=== PATIENT | female | born 1965 | race Caucasian/White ===

== ENCOUNTER 2019-09-18 12:50 | Emergency (ER) | payer OTHER ==
[2019-09-18 13:15] VITALS: BP 157/105; PULSE 98; TEMP 97.8; BMI 42.7
--- NOTE | 2019-09-18 13:34 | PDOC ---
History of Present Illness - General Chief Complaint: Pain Stated Complaint: NUMBNESS Time Seen by Provider: 09/18/19 13:16 History Source: Patient - History of Present Illness Timing/Duration: other Associated Symptoms: denies: weakness Past History - Past Medical History Allergies/Adverse Reactions: Allergies Allergy/AdvReac Type Severity Reaction Status Date / Time No Known Allergies Allergy Verified 09/18/19 13:09 COPD: Yes CHF: Yes HTN: Yes - Psycho Social/Smoking Cessation Hx Smoking History: Never smoked Hx Alcohol Use: No Drug/Substance Use Hx: No Review of Systems - Review of Systems Musculoskeletal: Yes: Back Pain. No: Neck Pain Neurological: Yes: Numbness. No: Headache, Tingling, Weakness *Physical Exam - Vital Signs Last Vital Signs Temp Pulse Resp BP Pulse Ox 97.8 F 98 H 20 157/105 H 97 09/18/19 13:09 09/18/19 13:09 09/18/19 13:09 09/18/19 13:09 09/18/19 13:09 - Physical Exam General Appearance: Yes: Appropriately Dressed. No: Apparent Distress HEENT: positive: Normal Voice Neck: positive: Supple Integumentary: positive: Dry, Warm Neurologic: positive: Fully Oriented, Alert, Normal Mood/Affect, Motor Strength 5/5. negative: Sensory Deficit Medical Decision Making - Medical Decision Making 09/18/19 13:28 53-year-old morbidly obesed female with history of hypertension here with continued numbness to bilateral hands, mid back and right lower leg x3 weeks. States she saw her primary doctor and had negative blood work 2 weeks ago. States she was prescribed gabapentin which is not relieving sxs. Also complaining of a burning sensation to her mid back but does not describe it as painful. Patient denies any neck or back injuries and no history of diabetes. see exam Neuropathy Neg w/u in pmd's office 2 weeks ago On gabapentin w/ no relief Exam unremarkable here FS 121 -Dc w/ neuro referral for further eval Elevated BP Took meds today Asx from BP standpoint -Dc to f/u with PMD Discharge - Discharge Information Problems reviewed: Yes Clinical Impression/Diagnosis: Numbness, Elevated blood pressure reading Condition: Good Disposition: HOME - Follow up/Referral Referrals: Antelmo Enriquez MD [Staff Physician] - - Patient Discharge Instructions Patient Printed Discharge Instructions: DI for Numbness/tingling Additional Instructions: The cause of your symptoms is unclear at this time You will need to be further evaluated by a neurologist - Post Discharge Activity
== END 2019-09-18 13:59 | disposition home or self-care (01) ==
LOC: JERFT 12:50
DX: R20.0 Anesthesia of skin (principal); I11.0 Hypertensive heart disease with heart failure; I50.9 Heart failure, unspecified; J44.9 Chronic obstructive pulmonary disease, unspecified; E66.01 Morbid (severe) obesity due to excess calories; Z68.41 Body mass index [BMI] 40.0-44.9, adult
CPT/HCPCS: 82962; 99281-25

== ENCOUNTER 2019-10-01 15:22 | Emergency (ER) | payer OTHER ==
[2019-10-01 15:33] VITALS: TEMP 99.2; BMI 42.2
--- NOTE | 2019-10-01 16:23 | PDOC ---
History of Present Illness - General Chief Complaint: Head/Neck problem Stated Complaint: NUMBNESS IN HANDS/LEGS Time Seen by Provider: 10/01/19 16:14 History Source: Patient Exam Limitations: No Limitations - History of Present Illness Initial Comments: 10/01/19 16:32 HISTORY OF PRESENT ILLNESS: 54-year-old woman with past medical history of hypertension, asthma, COPD, restless leg syndrome, lower back tumor removal at age 17-18 who was sent to the emergency department by her neurologist today to rule out a cord compression. Patient reports she has been having increased numbness and tingling with pain in both hands, cervical and lumbar spine, bilateral lower extremities. Patient reports an additional burning sensation in her lower back and lower extremities. Patient endorses saddle anesthesia but denies loss of continence of bladder or bowel. Patient apparently had a negative work-up as an outpatient with her primary doctor and then followed up with neurology. No recent travel or sick contacts. PAST MEDICAL HISTORY: See HPI SURGICAL HISTORY: See HPI ALLERGIES: No known drug allergies REVIEW OF SYSTEMS General/Constitutional: Denies fever or chills. Denies weakness, weight change. HEENT: Denies change in vision. Denies ear pain or discharge. Denies sore throat. Cardiovascular: Denies chest pain or shortness of breath. Respiratory: Denies cough, wheezing, or hemoptysis. Gastrointestinal: Denies nausea, vomiting, diarrhea or constipation. Denies rectal bleeding. Genitourinary: Denies dysuria, frequency, or change in urination. Musculoskeletal: Denies joint or muscle swelling or pain. Denies neck or back pain. Skin and breasts: Denies rash or easy bruising. Neurologic: See HPI Psychiatric: Denies depression or anxiety. Endocrine: Denies increased thirst. Denies abnormal weight change. Hematologic/Lymphatic: Denies anemia, easy bleeding, or history of blood clots. Allergic/Immunologic: Denies hives or skin allergy. Denies latex allergy. PHYSICAL EXAM General Appearance: Well-appearing, appropriately dressed. No apparent distress , no intoxication. HEENT: EOMI, PERRLA, normal ENT inspection, normal voice, TMs normal, pharynx normal. No conjunctival pallor. No photophobia, scleral icterus. Neck: Supple. Trachea midline. No tenderness, rigidity, carotid bruit, stridor , lymphadenopathy, or thyromegaly. Respiratory/Chest: Lungs CTAB. No shortness of breath, chest tenderness, respiratory distress, accessory muscle use. No crackles, rales, rhonchi, stridor , wheezing, dullness Cardiovascular: RRR. S1, S2. No JVD, murmur, bradycardia, tachycardia. Vascular Pulses: Dorsalis-Pedis (R): 2+, Dorsalis-Pedis (L): 2+ Gastrointestinal/Abdominal: Normal bowel sounds. Obese abdomen soft, non- distended. No tenderness or rebound tenderness. No organomegaly, pulsatile mass , guarding, hernia, hepatomegaly, splenomegaly. Lymphatic: No adenopathy, tenderness. Musculoskeletal/Extremities: Normal inspection. FROM of all extremities, normal capillary refill. Pelvis Stable. No CVA tenderness. No tenderness to extremities, pedal edema, swelling, erythema or deformity. Integumentary: Appropriate color, dry, warm. No cyanosis, erythema, jaundice or rash Neurologic: community recreation coordinator II-XII intact. Fully oriented, alert. Appropriate mood/affect. 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 No appreciable EOM palsy, facial asymmetry or sensory deficit. Bilateral knee hyperreflexia noted. Rectal exam is within normal limits. Tone is normal. Stool present in the vault. 10/01/19 17:01 Past History - Past Medical History Allergies/Adverse Reactions: Allergies Allergy/AdvReac Type Severity Reaction Status Date / Time No Known Allergies Allergy Verified 10/01/19 15:33 COPD: Yes CHF: Yes HTN: Yes - Psycho Social/Smoking Cessation Hx Smoking History: Never smoked Have you smoked in the past 12 months: No Information on smoking cessation initiated: No Hx Alcohol Use: No Drug/Substance Use Hx: No *Physical Exam - Vital Signs Last Vital Signs Temp Pulse Resp BP Pulse Ox 99.2 F 81 16 158/85 100 10/01/19 15:22 10/01/19 15:22 10/01/19 15:22 10/01/19 15:22 10/01/19 15:22 ED Treatment Course - LABORATORY CBC & Chemistry Diagram: 10/01/19 17:25 10/01/19 17:25 Medical Decision Making - Medical Decision Making 10/01/19 16:37 A/P: 54-year-old woman with 3 weeks of cervical lumbar spine pain with numbness and tingling to bilateral upper extremities, lower extremity since 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 Hyperreflexia present in bilateral knees. Differential diagnosis includes but is not limited to cord compression, disc disease, spinal epidural abscess, metastatic disease Laboratory testing Urinalysis, urine culture Morphine 4 mg IV MRI of the cervical, thoracic and lumbar spine with contrast Dispo pending MRI and discussion with Dr. La the patient's neurologist 10/01/19 16:44 Case has been discussed with neurology who states if there are any findings on the MRI patient to be evaluated by neurosurgery and patient can be given steroids. MRI is negative patient can be discharged home and follow-up with him in his office as an outpatient. 10/01/19 23:05 MRI as read by imaging on-call: There is a suggestion of thickening and possible calcification of the posterior longitudinal ligament. There is an anterior epidural process at C4/C5. This effaces the subarachnoid space and produces severe central canal stenosis and mild cord compression. There is questionable very faint T2 weighted hyperintense intramedullary signal at this level possibly evidence of myelomalacia. On postcontrast images there is mild abnormal enhancement in the anterior epidural space at C4/C5. This raises the possibility of acute infectious process such as small collection in this region. Tiny hematoma in this region is also possible but would not be consistent with abnormal enhancement. 2. There is no evidence of compression fracture or subluxation appreciated. Neurosurgery has been paged Solu-Medrol 125 mg IV 10/02/19 00:11 Multiple attempt to contact neurosurgery if been unsuccessful. I will contact [facility] for transfer for neurosurgical evaluation. 10/02/19 00:17 Case has been discussed with Dr. Oh of neurosurgery at [facility] who accepts patient for ED to ED transfer. Will obtain a CD with the patient's images and ALS transportation has been requested will be provided by [facility]. Discharge - Discharge Information Problems reviewed: Yes Clinical Impression/Diagnosis: Cord compression Condition: Fair Disposition: TRANSFER ACUTE CARE/OTHER HOSP - Follow up/Referral - Patient Discharge Instructions - Post Discharge Activity - Transfer to Acute Care Facility Receiving Facility Name: [facility] Transfer Comment: 10/02/19 00:[address] Oh at 12:15 AM on 10/02/2019.
[2019-10-01] MEDS ORDERED: morphine CARPU-JECT 4 MG/1 ML DISP.SYRIN IVPUSH ONE (16:31)
[2019-10-01 18:05] LABS: BASO % 1.5 % (0-2.0); EOS % 3.8 % (0-4.5); HEMATOCRIT 39.5 % (32.4-45.2); HEMOGLOBIN 13.3 GM/dL (10.7-15.3); MCH 28.6 pg (25.7-33.7); MCHC 33.7 g/dl (32.0-36.0); MEAN CELL VOLUME 84.9 fl (80-96); MEAN PLT VOLUME 9.9 fl (7.5-11.1); MONO % 4.4 % (3.8-10.2); NEUT % 72.3 % (42.8-82.8); PLATELET COUNT 239 K/MM3 (134-434); RBC 4.66 M/mm3 (3.60-5.2); RDW 13.5 % (11.6-15.6); WHITE BLOOD COUNT 9.1 K/mm3 (4.0-10.0)
[2019-10-01 18:35] LABS: ALBUMIN 3.7 g/dl (3.4-5.0); BILIRUBIN,TOTAL 0.3 mg/dL (0.2-1); BLOOD UREA NITROGEN 9.9 mg/dL (7-18); CALCIUM 9.4 mg/dL (8.5-10.1); CREATININE 0.8 mg/dL (0.55-1.3); MAGNESIUM 2.3 mg/dL (1.8-2.4); POTASSIUM 4.1 mmol/L (3.5-5.1); TOT PROT 7.5 g/dl (6.4-8.2)
[2019-10-01] MEDS ORDERED: methylPREDNISolone NA SUCC 125 MG/2 ML VIAL IVPB ONE (23:05)
[2019-10-01] MEDS ORDERED: methylPREDNISolone NA SUCC 125 MG/2 ML VIAL ONE (23:47)
[2019-10-02 02:15] VITALS: BP 160/94; PULSE 81
== END 2019-10-02 02:16 | disposition short-term general hospital (02) ==
LOC: JER 15:22
PROC: 3E0333Z Introduction of Anti-inflammatory into Peripheral Vein, Percutaneous Approach (ICD-10-PCS; principal; 2019-10-01)
DX: G95.20 Unspecified cord compression (principal); I11.0 Hypertensive heart disease with heart failure; I50.9 Heart failure, unspecified; J44.9 Chronic obstructive pulmonary disease, unspecified; J45.998 Other asthma; G25.81 Restless legs syndrome
CPT/HCPCS: 36415; 72142-TC; 72147-TC; 72149-TC; 80053; 83735; 85025; 96374; 99284-25; A9579